=== PATIENT | female | born 1980 | race Caucasian/White ===

== ENCOUNTER 2025-03-22 08:03 | Emergency (ER) | payer OTHER, SELFPAY ==
[2025-03-22 08:33] VITALS: BP 136/84; PULSE 96; RESP 18; TEMP 36.7; O2SAT 100
--- NOTE | 2025-03-22 08:56 | ED_ITS ---
HPI - URI/Sore Throat General Chief Complaint: Upper Respiratory Infection Stated Complaint: sore throat, headache, sweating Time Seen by Provider: 03/22/25 08:48 Source: patient and RN notes reviewed Mode of arrival: ambulatory Limitations: no limitations History of Present Illness HPI Narrative: 45-year-old female presents [facility] complaining of upper respiratory symptoms for 2 days. Patient reports sore throat, cough, congestion, body aches, sweats. Patient tried [id number] Tylenol cold and flu medicine with some relief. Patient reports she is not feeling much better today. Patient denies any chest pain, or difficulty breathing, nausea, vomiting, diarrhea, or any other symptoms. Patient denies any significant past medical history. Related Data Home Medications ?Medication ?Instructions ?Recorded ?Confirmed ?Last Taken ?Type No Home Medications 03/22/25 03/22/25 Unknown History Allergies Allergy/AdvReac Type Severity Reaction Status Date / Time No Known Allergies Allergy Verified 03/22/25 09:04 Review of Systems Review of Systems: CONSTITUTIONAL: Denies fever, chills, body aches, or sweats. EYES: Denies visual changes, redness, or discharge. ENT: Positive for, congestion, sore throat. Negative for rhinorrhea or otalgia. CARDIOVASCULAR: Denies chest pain, palpitations, or edema. RESPIRATORY: Positive for cough. Negative for dyspnea or wheezing. GASTROINTESTINAL: Denies abdominal pain, nausea, vomiting, or diarrhea. GENITOURINARY: Denies dysuria or hematuria. SKIN: Denies rash or itching. MUSCULOSKELETAL: Denies back pain, joint pain, or myalgia. NEUROLOGIC: Denies headache, numbness, or weakness. PSYCHIATRIC: Denies anxiety or depression. All other systems reviewed are negative, except as documented in HPI. PMFSH Comments At the time of my signature, I reviewed and agree with the nursing past medical, surgical, social, and family history. There is no relevant family history pertinent to the patient complaint. Exam Narrative: GENERAL: This is a well-nourished, well-developed adult, in no apparent d istress. They are non ill-appearing, nontoxic appearing. HEAD: normocephalic, atraumatic. EYES: Sclera clear/white. Vision is grossly intact. Conjunctiva normal bilaterally. Extraocular movements intact. EARS: External ears normal, auditory canals clear and without drainage, TMs without erythema or perforation. Hearing grossly intact. NOSE: External nose normal with no obvious nasal discharge, nasal turbinates erythematous, no rhinorrhea. THROAT: Mucous membranes moist, posterior pharynx erythematous without exudate. Uvula is midline. Postnasal drip present. NECK: Neck supple, non-tender without lymphadenopathy, masses or thyromegaly. CARDIOVASCULAR: Regular rate and rhythm without murmurs, gallops, or rubs. RESPIRATORY: Clear to auscultation. Breath sounds equal bilaterally. No wheezes, rales, or rhonchi. Respiratory rate normal, respiratory effort nonlabored, no respiratory distress SKIN: warm, Dry, intact with no suspicious lesions or rash, good texture and turgor. NEURO: awake, alert, and oriented to person, place and time. There were no obvious focal neurologic abnormalities. EXTREMITIES: No joint tenderness, effusion, or edema noted. BACK: Nontender without deformity. Course Course Emergency Course: Portions of this record may have been created with voice recognition software Level of Care: Express Care Visit Vital Signs Vital signs: Vital Signs Temperature 98.0 F 03/22/25 08:33 Pulse Rate 96 03/22/25 08:33 Respiratory Rate 18 03/22/25 08:33 Blood Pressure 136/84 03/22/25 08:33 Pulse Oximetry 100 03/22/25 08:33 Oxygen Delivery Room Air 03/22/25 08:33 Temperature 98.0 F 03/22/25 08:33 Pulse Rate 96 03/22/25 08:33 Respiratory Rate 18 03/22/25 08:33 Blood Pressure 136/84 03/22/25 08:33 Pulse Oximetry 100 03/22/25 08:33 Oxygen Delivery Room Air 03/22/25 08:33 MDM - URI/Sore Throat MDM Narrative Medical decision making narrative: Rapid COVID, flu, strep throat are negative. Throat culture pending. Symptoms likely viral in etiology. Discussed physical exam findings. Advised supportive measures and signs/symptoms to go to the ER. Pt is appropriate for outpt treatment and f/u. Differential Diagnosis Differential diagnosis: Likely upper respiratory infection, sinusitis, viral infection and pharyngitis Lab Data Attestation: I reviewed the patient's lab results. Labs: Lab Results 03/22/25 Range/Units 08:57 POC Influenza A Ag Negative (Negative) POC Influenza B Ag Negative (Negative) POC SARS CoV-2 Ag Negative (Negative) POC Grp A Strep Screen Negative (Negative) Discharge Plan Discharge Clinical Impression: Upper respiratory infection Qualifiers: URI type: unspecified viral URI Qualified Code(s): J06.9 - Acute upper respiratory infection, unspecified Patient Disposition: Home Condition: Stable Instructions: Upper Respiratory Infection (ED) Additional Instructions: Your rapid strep swab, COVID, and flu was negative today at [facility]. You will be notified in a few days if the culture comes back positive for strep, and appropriate antibiotics will be called in for you at that time. Your symptoms are likely due to a viral illness, which is not treated with antibiotics. Viral symptoms can be present for up to 10-14 days. Take Tylenol ibuprofen for fever or pain. Rest and stay hydrated. Follow up with your PCP in 3-5 days if symptoms are not improving. Go to the ER immediately if you develop difficulty breathing or swallowing Patient Language: Macedonian Prescriptions: No Action No Home Medications Follow-up/Referrals: UNKNOWN,DOCTOR [Primary Care Provider] - Time of Disposition: 09:06
[2025-03-22 08:59] LABS: EDCOVIDSCREEN Negative (Negative); EDINFLUASCREEN Negative (Negative); EDINFLUBSCREEN Negative (Negative); EDSTREPNEGPOS1 Negative (Negative)
== END 2025-03-22 09:10 | disposition home or self-care (01) ==
DX: J06.9 Acute upper respiratory infection, unspecified (principal); Z20.822 Contact with and (suspected) exposure to COVID-19
CPT/HCPCS: 87081; 87426; 87804; 87880; 99203; G0463